=== PATIENT | male | born 1945 | race Caucasian/White ===

== ENCOUNTER 2022-01-08 12:27 | Emergency (ER) | payer MEDICARE, OTHER ==
[2022-01-08] MEDS ORDERED: Sodium Chloride 0.9% 10 ML Syringe FLUSH PRN (12:33)
[2022-01-08] MEDS ORDERED: Atenolol 50 MG Tab PO ONE (12:37)
[2022-01-08] MEDS ORDERED: VALSARTAN PO SCH (12:45)
[2022-01-08] MEDS ORDERED: HYDROCHLOROTHIAZIDE PO SCH (12:45)
[2022-01-08 13:12] LABS: ESTIMATED GFR 47 mL/min (>60)
[2022-01-08] MEDS ORDERED: Atenolol 25 MG Tab ONE (13:15)
[2022-01-08] MEDS ORDERED: Sodium Chloride 0.9% 1,000 ML IV ONE (13:26)
[2022-01-08] MEDS ORDERED: Hydrochlorothiazide 12.5 MG Cap PO SCH (14:15)
[2022-01-08 14:59] LABS: CORONAVIRUS COVID-19 NAA POSITIVE (NEGATIVE)
[2022-01-08] MEDS ORDERED: Acetaminophen 500 MG Tab PO ONE (15:04)
== END 2022-01-08 16:35 | disposition home or self-care (01) ==
LOC: FB.ED 12:27
DX: U07.1 COVID-19 (principal); E11.9 Type 2 diabetes mellitus without complications; Z79.84 Long term (current) use of oral hypoglycemic drugs
CPT/HCPCS: 0241U; 36415; 80048; 81001; 84484; 85027; 87086; 87088; 87186; 96360; 99285; A9270; J7030

== ENCOUNTER 2023-09-21 19:49 | Emergency (ER) | payer MEDICARE, OTHER ==
[2023-09-21] MEDS ORDERED: Sodium Chloride 0.9% 10 ML Syringe FLUSH PRN (20:07)
[2023-09-21 20:28] LABS: BASOPHILS ABSOLUTE AUTO 0.1 x10-3/uL (0.0-0.3); BASOPHILS PERCENT AUTO 0.4 % (0.3-3.8); EOSINOPHILS PERCENT AUTO 0.1 % (0.1-6.8); HEMATOCRIT 44.3 % (38.3-50.1); HEMOGLOBIN 14.7 g/dL (12.9-17.7); LYMPHOCYTES ABSOLUTE AUTO 0.8 x10-3/uL (0.5-4.5); LYMPHOCYTES PERCENT AUTO 7.3 % (15.8-45.3); MEAN CORPUSCULAR HEMOGLOBIN 29.7 pg (27.0-33.3); MEAN CORPUSCULAR HGB CONC 33.2 g/dL (28.7-35.3); MEAN CORPUSCULAR VOLUME 89.4 fL (80.8-98.7); MEAN PLATELET VOLUME 8.4 fL (6.7-11.0); MONOCYTES ABSOLUTE AUTO 1.4 x10-3/uL (0.0-1.2); MONOCYTES PERCENT AUTO 12.3 % (5.5-15.2); NEUTROPHILS ABSOLUTE AUTO 9.1 x10-3/uL (1.7-6.9); NEUTROPHILS PERCENT AUTO 79.9 % (40.3-71.8); PLATELET COUNT,PLT 234 x10(3)uL (117-477); RED BLOOD CELL COUNT 4.96 x10(6)uL (3.90-5.90); RED CELL DISTRIBUTION WIDTH 14.5 % (12.4-15.0); WHITE BLOOD CELL COUNT,WBC 11.4 x10-3/uL (3.2-10.1)
[2023-09-21 20:34] LABS: BLOOD UREA NITROGEN,BUN 24 mg/dL (7-18); BUN/CREATININE RATIO 14.1 (9-20); CALCIUM 10.1 mg/dL (8.6-10.2); CARBON DIOXIDE,CO2 23 mmol/L (21-32); CHLORIDE,CL 101 mmol/L (100-110); CREATININE 1.7 mg/dL (0.70-1.30); ESTIMATED GFR 40 mL/min (>60); GLUCOSE RANDOM 139 mg/dL (80-116); POTASSIUM,K 3.7 mmol/L (3.5-5.3); SODIUM,NA 137 mmol/L (135-145)
[2023-09-21 20:40] LABS: A/G RATIO 0.9; ALANINE AMINOTRANSFERASE,ALT 31 U/L (12-36); ALBUMIN 3.5 g/dL (3.2-4.6); ALKALINE PHOSPHATASE 76 IU/L (56-112); ASPARTATE AMNIOTRANSFERASE,AST 82 IU/L (5-25); BILIRUBIN TOTAL 1.4 mg/dL (0.1-1.3); PROTEIN TOTAL,TP 7.6 g/dL (6.0-8.0)
[2023-09-21 20:48] LABS: BILIRUBIN,URINE NEGATIVE (NEGATIVE); GLUCOSE,URINE NORMAL (NORMAL); KETONES,URINE 15 mg/dL (NEGATIVE); LEUKOCYTE ESTERASE,URINE LARGE (NEGATIVE); NITRITE,URINE POSITIVE (NEGATIVE); OCCULT BLOOD,URINE LARGE (NEGATIVE); PROTEIN,URINE 100 mg/dL (NEGATIVE); UROBILINOGEN,URINE NORMAL (NEGATIVE)
[2023-09-21 20:51] LABS: C-REACTIVE PROTEIN 7.95 mg/dL (<0.50); TROPONIN I 12187.6 pg/mL (4.0-60.3)
[2023-09-21 20:54] LABS: APPEARANCE,URINE SLIGHTLY CLOUDY (CLEAR); BACTERIA,URINE MANY (NS); COARSE GRANULAR CASTS,URINE OCCASIONAL (NS); COLOR,URINE YELLOW (YELLOW); SQUAMOUS EPITHELIAL CELLS,UR OCCASIONAL (NS,R,O); WBC,URINE 40-50 (0-5)
[2023-09-21] MEDS: Aspirin 325 MG Tab.EC PO ONE (21:28)
[2023-09-21] MEDS: Clopidogrel 75 MG Tab PO ONE (21:28)
[2023-09-21] MEDS: Metoprolol Tartrate 5 MG/5 ML SDV IVPUSH ONE (21:31)
[2023-09-21] MEDS ORDERED: Heparin Sodium/0.45% NaCl 25,000 UNITS/500 ML BAG IV SCH (21:45)
[2023-09-21] MEDS: Labetalol 20 MG/4 ML Syringe IVPUSH ONE ×2 (21:52→22:28)
[2023-09-21] MEDS: Metoprolol Tartrate 5 MG in Sodium Chloride 0.9% 50 ML IV ONE (21:54)
[2023-09-21] MEDS: Heparin Sodium 5,000 Units/ML Vial IVPUSH ONE (22:24)
[2023-09-21] MEDS: Heparin Sodium/0.45% NaCl 25,000 UNITS/500 ML BAG IV SCH (22:24)
[2023-09-21] MEDS ORDERED: Heparin Sodium/0.45% NaCl 500 ML IV SCH (22:30)
== END 2023-09-21 22:46 ==
LOC: FB.ED 19:49
DX: I21.9 Acute myocardial infarction, unspecified (principal); I10 Essential (primary) hypertension; E11.9 Type 2 diabetes mellitus without complications; Z79.84 Long term (current) use of oral hypoglycemic drugs
CPT/HCPCS: 36415; 71045; 80053; 81001; 82550; 83605; 83880; 84484; 85025; 86140; 93005; 96365; 96375; 96376; 99285-25; A9270-GY; J1644; J1920; J3490; U0002

== ENCOUNTER 2023-09-27 09:25 | Inpatient (IN) | payer MEDICARE, OTHER ==
[2023-09-27] MEDS: metFORMIN 500 MG Tab PO SCH (18:13)
[2023-09-27] MEDS: Metoprolol Tartrate 25 MG Tab PO SCH (20:37)
[2023-09-28] MEDS: Rosuvastatin 20 MG Tab PO SCH (08:28)
[2023-09-28] MEDS: Aspirin 81 MG Tab.Chew PO SCH (08:28)
[2023-09-28] MEDS: amLODIPine 5 MG Tab PO SCH (08:28)
[2023-09-28] MEDS: Clopidogrel 75 MG Tab PO SCH (08:29)
[2023-10-01] MEDS: Acetaminophen 325 MG Tab PO PRN (17:38)
[2023-10-01 18:39] LABS: HEMATOCRIT 39.3 % (38.3-50.1); MEAN CORPUSCULAR HEMOGLOBIN 29.6 pg (27.0-33.3); MEAN CORPUSCULAR HGB CONC 33.1 g/dL (28.7-35.3); MEAN CORPUSCULAR VOLUME 89.3 fL (80.8-98.7); MEAN PLATELET VOLUME 7.5 fL (6.7-11.0); PLATELET COUNT,PLT 319 x10(3)uL (117-477); RED CELL DISTRIBUTION WIDTH 13.7 % (12.4-15.0); WHITE BLOOD CELL COUNT,WBC 16.7 x10-3/uL (3.2-10.1)
[2023-10-01 18:52] LABS: A/G RATIO 0.6; ALANINE AMINOTRANSFERASE,ALT 41 U/L (12-36); ALBUMIN 2.7 g/dL (3.2-4.6); ALKALINE PHOSPHATASE 97 IU/L (56-112); ASPARTATE AMNIOTRANSFERASE,AST 26 IU/L (5-25); BILIRUBIN TOTAL 0.6 mg/dL (0.1-1.3); BLOOD UREA NITROGEN,BUN 28 mg/dL (7-18); CALCIUM 9.2 mg/dL (8.6-10.2); CARBON DIOXIDE,CO2 25 mmol/L (21-32); CHLORIDE,CL 99 mmol/L (100-110); EST CRCL DRUG DOSING (CG) 30.42 mL/min; ESTIMATED GFR 33 mL/min (>60); GLUCOSE RANDOM 165 mg/dL (80-116); POTASSIUM,K 4.4 mmol/L (3.5-5.3); PROTEIN TOTAL,TP 7.3 g/dL (6.0-8.0); SODIUM,NA 132 mmol/L (135-145)
[2023-10-01 18:53] LABS: BAND PERCENT MAN 4 % (0-6); EOSINOPHILS PERCENT MAN 1 % (0-5); LYMPHOCYTES PERCENT MAN 5 % (13-37); MONOCYTES PERCENT MAN 3 % (4-12); SEG NEUTROPHILS PERCENT MAN 87 % (46-82)
[2023-10-01 20:38] LABS: BILIRUBIN,URINE NEGATIVE (NEGATIVE); GLUCOSE,URINE NORMAL (NORMAL); KETONES,URINE NEGATIVE (NEGATIVE); LEUKOCYTE ESTERASE,URINE LARGE (NEGATIVE); NITRITE,URINE POSITIVE (NEGATIVE); OCCULT BLOOD,URINE MODERATE (NEGATIVE); PROTEIN,URINE NEGATIVE (NEGATIVE); UROBILINOGEN,URINE NORMAL (NEGATIVE)
[2023-10-01 20:39] LABS: APPEARANCE,URINE SLIGHTLY CLOUDY (CLEAR); BACTERIA,URINE MODERATE (NS); COLOR,URINE YELLOW (YELLOW); RBC,URINE 0-5 (0-5); SQUAMOUS EPITHELIAL CELLS,UR OCCASIONAL (NS,R,O)
[2023-10-01] MEDS: cefTRIAXone 2 GM Vial IVPUSH ONE (22:19)
[2023-10-01] MEDS: Sodium Chloride 0.9% 10 ML Syringe FLUSH PRN (22:19)
[2023-10-01] MEDS: Ondansetron 4 MG/2 ML SDV IVPUSH PRN (22:57)
== END 2023-10-01 23:16 | DRG 947 ==
LOC: FB.MS 12:15
PROVIDERS: ADMIT Internal Medicine; ATTEND Internal Medicine
DX: R53.81 Other malaise (principal); I21.4 Non-ST elevation (NSTEMI) myocardial infarction; R53.1 Weakness; I12.9 Hypertensive chronic kidney disease with stage 1 through stage 4 chronic kidney disease, or unspecified chronic kidney disease; E78.00 Pure hypercholesterolemia, unspecified; I25.10 Atherosclerotic heart disease of native coronary artery without angina pectoris; E11.22 Type 2 diabetes mellitus with diabetic chronic kidney disease; N18.31 Chronic kidney disease, stage 3a; E66.9 Obesity, unspecified; Z79.82 Long term (current) use of aspirin; Z79.02 Long term (current) use of antithrombotics/antiplatelets; Z79.84 Long term (current) use of oral hypoglycemic drugs; Z79.899 Other long term (current) drug therapy; Z68.36 Body mass index [BMI] 36.0-36.9, adult
CPT/HCPCS: 36415; 71045; 80053; 81001; 82947; 83605; 83880; 84484; 85025; 86140; 87040; 87086; 87088; 87186; 93005; 97110-GP; 97161-GP; 97165-GO; 97530-GO; 97535-GO; A9270-GY; J0696; J2405; J3490; U0002

== ENCOUNTER 2023-10-03 09:56 | Inpatient (IN) | payer MEDICARE, OTHER ==
[2023-10-03] MEDS: metFORMIN 500 MG Tab PO SCH (17:33)
[2023-10-03] MEDS: Metoprolol Tartrate 25 MG Tab PO SCH (20:25)
[2023-10-03] MEDS: Amoxicillin/Clavulanate K 875-125 MG Tab PO SCH (20:25)
[2023-10-04] MEDS: Aspirin 81 MG Tab.Chew PO SCH (08:04)
[2023-10-04] MEDS: Rosuvastatin 20 MG Tab PO SCH (08:04)
[2023-10-04] MEDS: Clopidogrel 75 MG Tab PO SCH (08:04)
[2023-10-04] MEDS: amLODIPine 5 MG Tab PO SCH (08:05)
[2023-10-04] MEDS: Ciprofloxacin 500 MG Tab PO SCH (12:01)
== END 2023-10-06 10:50 | disposition home or self-care (01) | DRG 947 ==
LOC: FB.MS 14:08
PROVIDERS: ADMIT Internal Medicine; ATTEND Family Medicine
DX: R53.81 Other malaise (principal); I21.4 Non-ST elevation (NSTEMI) myocardial infarction; I13.0 Hypertensive heart and chronic kidney disease with heart failure and stage 1 through stage 4 chronic kidney disease, or unspecified chronic kidney disease; N18.31 Chronic kidney disease, stage 3a; R53.83 Other fatigue; I25.10 Atherosclerotic heart disease of native coronary artery without angina pectoris; I50.9 Heart failure, unspecified; E78.00 Pure hypercholesterolemia, unspecified; E11.22 Type 2 diabetes mellitus with diabetic chronic kidney disease; E66.9 Obesity, unspecified; Z79.82 Long term (current) use of aspirin; Z79.02 Long term (current) use of antithrombotics/antiplatelets; Z79.84 Long term (current) use of oral hypoglycemic drugs; Z79.2 Long term (current) use of antibiotics; Z79.899 Other long term (current) drug therapy; Z68.35 Body mass index [BMI] 35.0-35.9, adult; Z98.890 Other specified postprocedural states; Z87.440 Personal history of urinary (tract) infections
CPT/HCPCS: 82947; 97161-GP; 97165-GO; 97530-GO; 97530-GP; 99304; 99315; A9270-GY

== ENCOUNTER 2023-11-10 13:22 | Inpatient (IN) | payer MEDICARE, OTHER ==
[2023-11-10 13:56] LABS: BASOPHILS ABSOLUTE AUTO 0.1 x10-3/uL (0.0-0.3); BASOPHILS PERCENT AUTO 0.8 % (0.3-3.8); EOSINOPHILS ABSOLUTE AUTO 0.1 x10-3/uL (0.0-0.6); EOSINOPHILS PERCENT AUTO 1.2 % (0.1-6.8); HEMATOCRIT 41.6 % (38.3-50.1); HEMOGLOBIN 14.1 g/dL (12.9-17.7); LYMPHOCYTES ABSOLUTE AUTO 0.7 x10-3/uL (0.5-4.5); LYMPHOCYTES PERCENT AUTO 8.1 % (15.8-45.3); MEAN CORPUSCULAR HEMOGLOBIN 29.4 pg (27.0-33.3); MEAN CORPUSCULAR VOLUME 86.5 fL (80.8-98.7); MEAN PLATELET VOLUME 7.7 fL (6.7-11.0); MONOCYTES ABSOLUTE AUTO 0.8 x10-3/uL (0.0-1.2); MONOCYTES PERCENT AUTO 8.9 % (5.5-15.2); NEUTROPHILS ABSOLUTE AUTO 7.2 x10-3/uL (1.7-6.9); PLATELET COUNT,PLT 213 x10(3)uL (117-477); RED BLOOD CELL COUNT 4.81 x10(6)uL (3.90-5.90); RED CELL DISTRIBUTION WIDTH 14.3 % (12.4-15.0); WHITE BLOOD CELL COUNT,WBC 8.9 x10-3/uL (3.2-10.1)
[2023-11-10 14:02] LABS: BASE EXCESS VENOUS,POC -1 mmol/L (-2 - 3+); PCO2 VENOUS,POC 31 mmHg (41-51); PH VENOUS,POC 7.47 pH Units (7.32-7.43)
[2023-11-10 14:08] LABS: ALANINE AMINOTRANSFERASE,ALT 24 U/L (12-36); ALBUMIN 3.6 g/dL (3.2-4.6); ALKALINE PHOSPHATASE 97 IU/L (56-112); ASPARTATE AMNIOTRANSFERASE,AST 15 IU/L (5-25); BILIRUBIN TOTAL 0.7 mg/dL (0.1-1.3); BLOOD UREA NITROGEN,BUN 69 mg/dL (7-18); BUN/CREATININE RATIO 14.4 (9-20); CALCIUM 10.1 mg/dL (8.6-10.2); CARBON DIOXIDE,CO2 26 mmol/L (21-32); CHLORIDE,CL 99 mmol/L (100-110); EST CRCL DRUG DOSING (CG) 12.67 mL/min; ESTIMATED GFR 12 mL/min (>60); GLUCOSE RANDOM 134 mg/dL (80-116); MAGNESIUM 2.1 mg/dL (1.8-2.5); POTASSIUM,K 4.1 mmol/L (3.5-5.3); PROTEIN TOTAL,TP 7.4 g/dL (6.0-8.0); SODIUM,NA 134 mmol/L (135-145)
[2023-11-10 14:11] LABS: CREATININE 4.8 mg/dL (0.70-1.30)
[2023-11-10 14:12] LABS: C-REACTIVE PROTEIN 0.68 mg/dL (<0.50)
[2023-11-10 14:15] LABS: TROPONIN I 91.6 pg/mL (4.0-60.3)
[2023-11-10] MEDS: Ondansetron 4 MG/2 ML SDV IVPUSH ONE (14:15)
[2023-11-10] MEDS: Sodium Chloride 0.9% 1,000 ML IV ONE (14:17)
[2023-11-10] MEDS: Metoprolol Tartrate 50 MG Tab PO ONE (15:17)
[2023-11-10] MEDS: amLODIPine 5 MG Tab PO ONE ×2 (15:17→17:25)
[2023-11-10 15:59] LABS: BILIRUBIN,URINE NEGATIVE (NEGATIVE); GLUCOSE,URINE NORMAL (NORMAL); KETONES,URINE NEGATIVE (NEGATIVE); LEUKOCYTE ESTERASE,URINE NEGATIVE (NEGATIVE); NITRITE,URINE NEGATIVE (NEGATIVE); OCCULT BLOOD,URINE MODERATE (NEGATIVE); PROTEIN,URINE 500 mg/dL (NEGATIVE); UROBILINOGEN,URINE NORMAL (NEGATIVE)
[2023-11-10 16:00] LABS: APPEARANCE,URINE CLEAR (CLEAR); BACTERIA,URINE FEW (NS); COLOR,URINE YELLOW (YELLOW); SQUAMOUS EPITHELIAL CELLS,UR FEW (NS,R,O); WBC,URINE 0-5 (0-5)
[2023-11-10] MEDS: Lidocaine 2% HCl 6 ML Jel ONE (16:00)
[2023-11-10] MEDS ORDERED: Glucagon,Human Recombinant 1 MG Vial IM PRN (16:46)
[2023-11-10] MEDS ORDERED: 50% Dextrose in Water 50 ML Syringe IVPUSH PRN (16:46)
[2023-11-10] MEDS ORDERED: Insulin Lispro 100 Unit/ML 3 ML KwikPen SUBCUT ONE (17:18)
[2023-11-10] MEDS: Enoxaparin 30 MG/0.3 ML Syringe SUBCUT SCH (17:22)
[2023-11-10] MEDS: Metoprolol Tartrate 25 MG Tab PO SCH (17:26)
[2023-11-10] MEDS: Insulin Lispro 100 Unit/ML 3 ML KwikPen SUBCUT SCH (17:34)
[2023-11-10] MEDS: Rosuvastatin 20 MG Tab PO SCH (20:56)
[2023-11-11 06:43] LABS: BASOPHILS ABSOLUTE AUTO 0.1 x10-3/uL (0.0-0.3); BASOPHILS PERCENT AUTO 0.7 % (0.3-3.8); EOSINOPHILS ABSOLUTE AUTO 0.4 x10-3/uL (0.0-0.6); EOSINOPHILS PERCENT AUTO 5.2 % (0.1-6.8); HEMATOCRIT 38.1 % (38.3-50.1); HEMOGLOBIN 12.7 g/dL (12.9-17.7); LYMPHOCYTES ABSOLUTE AUTO 1.1 x10-3/uL (0.5-4.5); LYMPHOCYTES PERCENT AUTO 13.6 % (15.8-45.3); MEAN CORPUSCULAR HEMOGLOBIN 29.1 pg (27.0-33.3); MEAN CORPUSCULAR HGB CONC 33.2 g/dL (28.7-35.3); MEAN CORPUSCULAR VOLUME 87.4 fL (80.8-98.7); MEAN PLATELET VOLUME 7.5 fL (6.7-11.0); MONOCYTES ABSOLUTE AUTO 0.9 x10-3/uL (0.0-1.2); MONOCYTES PERCENT AUTO 10.9 % (5.5-15.2); NEUTROPHILS ABSOLUTE AUTO 5.5 x10-3/uL (1.7-6.9); NEUTROPHILS PERCENT AUTO 69.6 % (40.3-71.8); PLATELET COUNT,PLT 192 x10(3)uL (117-477); RED BLOOD CELL COUNT 4.36 x10(6)uL (3.90-5.90); RED CELL DISTRIBUTION WIDTH 14.3 % (12.4-15.0); WHITE BLOOD CELL COUNT,WBC 7.9 x10-3/uL (3.2-10.1)
[2023-11-11 06:58] LABS: ALANINE AMINOTRANSFERASE,ALT 23 U/L (12-36); ALBUMIN 3.2 g/dL (3.2-4.6); ALKALINE PHOSPHATASE 78 IU/L (56-112); ASPARTATE AMNIOTRANSFERASE,AST 16 IU/L (5-25); BILIRUBIN TOTAL 0.7 mg/dL (0.1-1.3); BLOOD UREA NITROGEN,BUN 72 mg/dL (7-18); CALCIUM 9.6 mg/dL (8.6-10.2); CARBON DIOXIDE,CO2 25 mmol/L (21-32); CHLORIDE,CL 102 mmol/L (100-110); EST CRCL DRUG DOSING (CG) 12.67 mL/min; ESTIMATED GFR 12 mL/min (>60); GLUCOSE RANDOM 88 mg/dL (80-116); PROTEIN TOTAL,TP 6.5 g/dL (6.0-8.0); SODIUM,NA 137 mmol/L (135-145)
[2023-11-11 07:02] LABS: CREATININE 4.8 mg/dL (0.70-1.30)
[2023-11-11] MEDS: Sodium Chloride 0.9% 1,000 ML IV SCH (07:50)
[2023-11-11] MEDS: amLODIPine 10 MG Tab PO SCH (08:04)
[2023-11-11] MEDS: Clopidogrel 75 MG Tab PO SCH (08:04)
[2023-11-11] MEDS: Sodium Chloride 0.9% 10 ML Syringe FLUSH PRN (08:45)
[2023-11-11] MEDS: Rosuvastatin 10 MG Tab PO SCH (20:10)
[2023-11-12] MEDS: Polyethylene Glycol 3350 Powder 17 GM Packet PO PRN (00:44)
[2023-11-12] MEDS: Ondansetron 4 MG/2 ML SDV IVPUSH PRN (00:50)
[2023-11-12 06:46] LABS: HEMATOCRIT 37.3 % (38.3-50.1); HEMOGLOBIN 12.3 g/dL (12.9-17.7); MEAN CORPUSCULAR VOLUME 87.7 fL (80.8-98.7); MEAN PLATELET VOLUME 7.9 fL (6.7-11.0); PLATELET COUNT,PLT 180 x10(3)uL (117-477); RED BLOOD CELL COUNT 4.26 x10(6)uL (3.90-5.90); RED CELL DISTRIBUTION WIDTH 14.2 % (12.4-15.0); WHITE BLOOD CELL COUNT,WBC 15.9 x10-3/uL (3.2-10.1)
[2023-11-12 06:58] LABS: BAND PERCENT MAN 5 % (0-6); LYMPHOCYTES PERCENT MAN 8 % (13-37); MONOCYTES PERCENT MAN 6 % (4-12); SEG NEUTROPHILS PERCENT MAN 81 % (46-82)
[2023-11-12 06:59] LABS: A/G RATIO 0.9; ALANINE AMINOTRANSFERASE,ALT 23 U/L (12-36); ALBUMIN 3.1 g/dL (3.2-4.6); ALKALINE PHOSPHATASE 85 IU/L (56-112); ASPARTATE AMNIOTRANSFERASE,AST 18 IU/L (5-25); BILIRUBIN TOTAL 0.8 mg/dL (0.1-1.3); BLOOD UREA NITROGEN,BUN 66 mg/dL (7-18); CALCIUM 9.1 mg/dL (8.6-10.2); CARBON DIOXIDE,CO2 21 mmol/L (21-32); CHLORIDE,CL 103 mmol/L (100-110); EST CRCL DRUG DOSING (CG) 13.83 mL/min; ESTIMATED GFR 13 mL/min (>60); GLUCOSE RANDOM 102 mg/dL (80-116); POTASSIUM,K 3.7 mmol/L (3.5-5.3); PROTEIN TOTAL,TP 6.5 g/dL (6.0-8.0); SODIUM,NA 136 mmol/L (135-145)
[2023-11-12 07:00] LABS: CREATININE 4.4 mg/dL (0.70-1.30)
[2023-11-12] MEDS ORDERED: hydrALAZINE 25 MG Tab PO PRN (10:39)
[2023-11-12] MEDS: Azithromycin 500 MG in Sodium Chloride 0.9% 250 ML IV SCH (11:30)
[2023-11-12] MEDS: cefTRIAXone 1 GM Vial IV SCH (11:38)
[2023-11-12] MEDS: Albuterol/Ipratropium 3.0-0.5 MG/3 ML Neb Soln NEB PRN (11:45)
[2023-11-12] MEDS: cefTRIAXone 1 GM in Sodium Chloride 0.9% 50 ML IV SCH (13:44)
[2023-11-12] MEDS ORDERED: Sodium Chloride 0.9% 1,000 ML IV SCH (23:15)
[2023-11-12 23:38] LABS: HEMATOCRIT 39.7 % (38.3-50.1); HEMOGLOBIN 13.1 g/dL (12.9-17.7); MEAN CORPUSCULAR HEMOGLOBIN 28.8 pg (27.0-33.3); MEAN CORPUSCULAR HGB CONC 32.9 g/dL (28.7-35.3); MEAN CORPUSCULAR VOLUME 87.4 fL (80.8-98.7); PLATELET COUNT,PLT 214 x10(3)uL (117-477); RED BLOOD CELL COUNT 4.54 x10(6)uL (3.90-5.90); RED CELL DISTRIBUTION WIDTH 14.5 % (12.4-15.0); WHITE BLOOD CELL COUNT,WBC 14.5 x10-3/uL (3.2-10.1)
[2023-11-12 23:42] LABS: BLOOD UREA NITROGEN,BUN 58 mg/dL (7-18); BUN/CREATININE RATIO 13.5 (9-20); CALCIUM 9.3 mg/dL (8.6-10.2); CARBON DIOXIDE,CO2 21 mmol/L (21-32); CHLORIDE,CL 103 mmol/L (100-110); EST CRCL DRUG DOSING (CG) 14.15 mL/min; ESTIMATED GFR 13 mL/min (>60); GLUCOSE RANDOM 131 mg/dL (80-116); POTASSIUM,K 3.9 mmol/L (3.5-5.3); SODIUM,NA 136 mmol/L (135-145)
[2023-11-12 23:53] LABS: BASE EXCESS VENOUS,POC -6 mmol/L (-2 - 3+); PCO2 VENOUS,POC 30 mmHg (41-51); PH VENOUS,POC 7.39 pH Units (7.32-7.43)
[2023-11-12 23:57] LABS: CREATININE 4.3 mg/dL (0.70-1.30)
[2023-11-12 23:58] LABS: C-REACTIVE PROTEIN 6.77 mg/dL (<0.50)
[2023-11-13 00:04] LABS: BAND PERCENT MAN 5 % (0-6); BASOPHILS PERCENT MAN 1 % (0-2); EOSINOPHILS PERCENT MAN 2 % (0-5); LYMPHOCYTES PERCENT MAN 10 % (13-37); MONOCYTES PERCENT MAN 4 % (4-12); SEG NEUTROPHILS PERCENT MAN 78 % (46-82)
[2023-11-13] MEDS: VANCOmycin 2 GM/400 ML 2 GM in Premix Bag 1 BAG IV ONE ×2 (01:00→10:12)
[2023-11-13] MEDS: Furosemide 40 MG/4 ML VIAL IVPUSH ONE ×2 (01:09→03:15)
[2023-11-13] MEDS: Lidocaine 2% HCl 6 ML Jel ONE ×3 (01:10→03:18)
[2023-11-13 06:54] LABS: HEMATOCRIT 37.6 % (38.3-50.1); HEMOGLOBIN 12.6 g/dL (12.9-17.7); MEAN CORPUSCULAR HEMOGLOBIN 29.3 pg (27.0-33.3); MEAN CORPUSCULAR HGB CONC 33.5 g/dL (28.7-35.3); MEAN CORPUSCULAR VOLUME 87.2 fL (80.8-98.7); MEAN PLATELET VOLUME 8.3 fL (6.7-11.0); PLATELET COUNT,PLT 187 x10(3)uL (117-477); RED BLOOD CELL COUNT 4.31 x10(6)uL (3.90-5.90); RED CELL DISTRIBUTION WIDTH 14.5 % (12.4-15.0)
[2023-11-13 07:09] LABS: HYPERSEGMENTED NEUTROPHILS MODERATE; LYMPHOCYTES PERCENT MAN 6 % (13-37); MONOCYTES PERCENT MAN 7 % (4-12); SEG NEUTROPHILS PERCENT MAN 87 % (46-82)
[2023-11-13 07:12] LABS: A/G RATIO 0.8; ALANINE AMINOTRANSFERASE,ALT 25 U/L (12-36); ALBUMIN 2.9 g/dL (3.2-4.6); ALKALINE PHOSPHATASE 102 IU/L (56-112); ASPARTATE AMNIOTRANSFERASE,AST 18 IU/L (5-25); BILIRUBIN TOTAL 0.9 mg/dL (0.1-1.3); BLOOD UREA NITROGEN,BUN 62 mg/dL (7-18); BUN/CREATININE RATIO 14.1 (9-20); CALCIUM 9.3 mg/dL (8.6-10.2); CARBON DIOXIDE,CO2 22 mmol/L (21-32); CHLORIDE,CL 103 mmol/L (100-110); EST CRCL DRUG DOSING (CG) 13.83 mL/min; ESTIMATED GFR 13 mL/min (>60); GLUCOSE RANDOM 131 mg/dL (80-116); POTASSIUM,K 3.8 mmol/L (3.5-5.3); PROTEIN TOTAL,TP 6.5 g/dL (6.0-8.0); SODIUM,NA 137 mmol/L (135-145)
[2023-11-13 07:16] LABS: CREATININE 4.4 mg/dL (0.70-1.30)
[2023-11-13] MEDS: hydrALAZINE 25 MG Tab PO SCH (10:16)
[2023-11-13] MEDS: Metoprolol Tartrate 100 MG Tab PO SCH (10:17)
[2023-11-13] MEDS: Saccharomyces Boulardii (Probiotic) 250 MG Cap PO SCH (10:18)
[2023-11-13] MEDS ORDERED: Morphine 2 MG/ML SYRINGE IVPUSH PRN (17:23)
[2023-11-13] MEDS: Heparin Sodium 5,000 Units/ML Vial SUBCUT SCH (21:16)
[2023-11-13] MEDS: Furosemide 20 MG/2 ML VIAL IVPUSH SCH (21:16)
[2023-11-14 06:20] LABS: BASOPHILS ABSOLUTE AUTO 0.1 x10-3/uL (0.0-0.3); BASOPHILS PERCENT AUTO 0.5 % (0.3-3.8); EOSINOPHILS ABSOLUTE AUTO 0.2 x10-3/uL (0.0-0.6); EOSINOPHILS PERCENT AUTO 2.2 % (0.1-6.8); HEMATOCRIT 36.8 % (38.3-50.1); HEMOGLOBIN 12.4 g/dL (12.9-17.7); LYMPHOCYTES ABSOLUTE AUTO 0.7 x10-3/uL (0.5-4.5); LYMPHOCYTES PERCENT AUTO 6.2 % (15.8-45.3); MEAN CORPUSCULAR HEMOGLOBIN 29.3 pg (27.0-33.3); MEAN CORPUSCULAR HGB CONC 33.6 g/dL (28.7-35.3); MEAN CORPUSCULAR VOLUME 87.1 fL (80.8-98.7); MEAN PLATELET VOLUME 8.6 fL (6.7-11.0); MONOCYTES ABSOLUTE AUTO 0.8 x10-3/uL (0.0-1.2); MONOCYTES PERCENT AUTO 7.4 % (5.5-15.2); NEUTROPHILS ABSOLUTE AUTO 9.1 x10-3/uL (1.7-6.9); NEUTROPHILS PERCENT AUTO 83.7 % (40.3-71.8); PLATELET COUNT,PLT 191 x10(3)uL (117-477); RED BLOOD CELL COUNT 4.22 x10(6)uL (3.90-5.90); RED CELL DISTRIBUTION WIDTH 14.6 % (12.4-15.0); WHITE BLOOD CELL COUNT,WBC 10.9 x10-3/uL (3.2-10.1)
[2023-11-14 06:30] LABS: A/G RATIO 0.7; ALANINE AMINOTRANSFERASE,ALT 18 U/L (12-36); ALBUMIN 2.6 g/dL (3.2-4.6); ALKALINE PHOSPHATASE 105 IU/L (56-112); ASPARTATE AMNIOTRANSFERASE,AST 16 IU/L (5-25); BILIRUBIN TOTAL 0.9 mg/dL (0.1-1.3); BLOOD UREA NITROGEN,BUN 66 mg/dL (7-18); CALCIUM 9.2 mg/dL (8.6-10.2); CARBON DIOXIDE,CO2 20 mmol/L (21-32); CHLORIDE,CL 100 mmol/L (100-110); EST CRCL DRUG DOSING (CG) 12.94 mL/min; ESTIMATED GFR 12 mL/min (>60); GLUCOSE RANDOM 118 mg/dL (80-116); POTASSIUM,K 3.3 mmol/L (3.5-5.3); PROTEIN TOTAL,TP 6.3 g/dL (6.0-8.0); SODIUM,NA 135 mmol/L (135-145)
[2023-11-14 06:34] LABS: CREATININE 4.7 mg/dL (0.70-1.30)
[2023-11-14] MEDS: Amoxicillin/Clavulanate K 500-125 MG Tab PO SCH (08:58)
[2023-11-14] MEDS: Potassium Chloride 10 MEQ Tab.ER PO SCH (08:58)
[2023-11-14] MEDS: Azithromycin 250 MG Tab PO SCH (08:59)
[2023-11-14] MEDS: Furosemide 40 MG Tab PO SCH (08:59)
[2023-11-15 06:29] LABS: BLOOD UREA NITROGEN,BUN 70 mg/dL (7-18); BUN/CREATININE RATIO 14.3 (9-20); CALCIUM 9.4 mg/dL (8.6-10.2); CARBON DIOXIDE,CO2 23 mmol/L (21-32); CHLORIDE,CL 99 mmol/L (100-110); EST CRCL DRUG DOSING (CG) 12.41 mL/min; ESTIMATED GFR 11 mL/min (>60); GLUCOSE RANDOM 130 mg/dL (80-116); POTASSIUM,K 3.2 mmol/L (3.5-5.3); SODIUM,NA 135 mmol/L (135-145)
[2023-11-15 06:31] LABS: CREATININE 4.9 mg/dL (0.70-1.30)
[2023-11-15] MEDS: Furosemide 20 MG Tab PO SCH (09:03)
[2023-11-15] MEDS: Doxycycline 100 MG Tab PO SCH (21:29)
[2023-11-16] MEDS: Ondansetron 4 MG Tab.DIS PO PRN (05:49)
[2023-11-16] MEDS: Ondansetron 4 MG Tab.DIS PO SCH (09:00)
== END 2023-11-16 11:18 | disposition hospice, home (50) | DRG 280 ==
LOC: FB.ED 13:22 → FB.MS 15:27
PROVIDERS: ADMIT Family Medicine; ATTEND Family Medicine
DX: R53.1 Weakness (principal); I21.4 Non-ST elevation (NSTEMI) myocardial infarction; R79.89 Other specified abnormal findings of blood chemistry; J18.9 Pneumonia, unspecified organism; I11.0 Hypertensive heart disease with heart failure; N17.9 Acute kidney failure, unspecified; I13.2 Hypertensive heart and chronic kidney disease with heart failure and with stage 5 chronic kidney disease, or end stage renal disease; E87.1 Hypo-osmolality and hyponatremia; E11.9 Type 2 diabetes mellitus without complications; I16.9 Hypertensive crisis, unspecified; N18.5 Chronic kidney disease, stage 5; Z51.5 Encounter for palliative care; N43.3 Hydrocele, unspecified; I71.40 Abdominal aortic aneurysm, without rupture, unspecified; R31.29 Other microscopic hematuria; K57.90 Diverticulosis of intestine, part unspecified, without perforation or abscess without bleeding; N40.0 Benign prostatic hyperplasia without lower urinary tract symptoms; R62.7 Adult failure to thrive; E86.0 Dehydration; E66.9 Obesity, unspecified; E11.22 Type 2 diabetes mellitus with diabetic chronic kidney disease; Z68.33 Body mass index [BMI] 33.0-33.9, adult; I50.9 Heart failure, unspecified; I25.10 Atherosclerotic heart disease of native coronary artery without angina pectoris; E78.00 Pure hypercholesterolemia, unspecified; Z79.84 Long term (current) use of oral hypoglycemic drugs; Z79.02 Long term (current) use of antithrombotics/antiplatelets; Z79.899 Other long term (current) drug therapy
CPT/HCPCS: 36415; 51701; 51798; 71045; 74176; 80048; 80053; 80202; 81001; 82947; 83605; 83735; 83880; 84484; 85025; 85379; 86140; 87040; 93005; 93010; 94150; 94640; 96361; 96374; 99223; 99232; 99233; 99238; 99285; 99285-25; A9270-GY; C1758; J0456; J0696; J1644; J1650; J1815; J1940; J2405; J3372; J3490; J7030; J7050; J7620; Q0162; U0002